=== PATIENT | male | born 1995 | race Caucasian/White ===

== ENCOUNTER 2017-12-20 23:00 | Emergency (ER) | payer OTHER ==
[~2017-12-20] VITALS: Ht 177.8 cm; Wt 63.6 kg
[2017-12-20 23:04] VITALS: BP 137/71; TEMP 99.5
[2017-12-20 23:35] VITALS: PULSE 110
== END 2017-12-20 23:49 | disposition home or self-care (01) ==
LOC: COL.ER 23:00
DX: L55.9 Sunburn, unspecified (principal)